=== PATIENT | female | born 1930 | race Caucasian/White ===

== ENCOUNTER 2018-02-18 10:37 | Inpatient (IN) | payer OTHER, MEDICARE ==
[~2018-02-18] VITALS: Ht 158.8 cm; Wt 72.7 kg
[~2018-02-18 10:37] MED LIST: ATOR40TA16 PO; BUPR100T4 PO; CALC600C3 PO; CHOL5000 PO; CO Q100C9 PO; CRANCAP2 PO; DEXI60CA3 PO; ESCI20TA PO; LEVO25TA4 PO; LOSA50TA PO; MIRA50TA PO; PLAV75TA29 PO; POTA10CA PO
[2018-02-18] MEDS ORDERED: LIDOCAINE HCL 1% PF 5 ML SYRINGE OTHER ONE (12:00)
[2018-02-18] MEDS ORDERED: PHENYLEPH/NS 1000 MCG/10 ML SYR IV ONE (12:00)
[2018-02-18] MEDS ORDERED: PROPOFOL 200 MG/20 ML AMP IV ONE (12:00)
[2018-02-18] MEDS ORDERED: METOPROLOL TARTRATE 5 MG/5 ML VIAL IV ONE (12:00)
[2018-02-18] MEDS ORDERED: ROCURONIUM INJ 50 MG/5 ML SYRINGE IV PUSH ONE (12:00)
[2018-02-18] MEDS ORDERED: hydrALAZINE HCL 20 MG/ML VIAL IV ONE (12:00)
[2018-02-18] MEDS ORDERED: POVIDONE IODINE 5% (ANTISEPSIS KIT) 4 APPLICATIONS EACH NARE PRN (12:15)
[2018-02-18] MEDS ORDERED: SODIUM CHLORID 0.9% 500 ML IV PRN (12:15)
[2018-02-18] MEDS ORDERED: LACTATED RINGER'S 1000 ML IV PRN (12:15)
[2018-02-18] MEDS ORDERED: CHLORHEXIDINE GLUCONATE 2 % 1 PACK (2 CLOTHS) TOPICAL PRN (12:15)
[2018-02-18] MEDS ORDERED: METOPROLOL TARTRATE 25 MG TAB PO PRN (12:15)
[2018-02-18] MEDS ORDERED: VANCOMYCIN 1000 MG/NS 250 ML (for <70 kg) IV SCH ×2 (12:30)
[2018-02-18] MEDS ORDERED: ROPIVACAINE PERI-ARTICULAR INJECTION. P-ARTICULR SCH ×5 (12:30)
[2018-02-18] MEDS ORDERED: CHLORHEXIDINE GLUCONATE 4% SOLN 120 ML BTL TOPICAL SCH (12:30)
[2018-02-18] MEDS ORDERED: ceFAZolin 2 GM PREMIX 50 ML IV SCH (12:30)
[2018-02-18] MEDS ORDERED: ACETAMINOPHEN 1000 MG/100 ML 100 ML IV ONE (13:30)
[2018-02-18] MEDS ORDERED: FAT EMULSION 20% INJ 0 ML ONE (13:41)
[2018-02-18] MEDS ORDERED: DEXAMETHASONE SOD PHOS PF 10 MG/ML VIAL ONE (13:42)
[2018-02-18] MEDS ORDERED: BUPIVACAINE HCL PF 0.5% 30 ML VIAL ONE (13:42)
[2018-02-18] MEDS ORDERED: VANCOMYCIN HCL 1000 MG VIAL ONE (13:49)
[2018-02-18 13:50] VITALS: PULSE 80
[2018-02-18] MEDS ORDERED: GENTAMICIN SULFATE 80 MG/2 ML VIAL ONE (14:31)
--- NOTE | 2018-02-18 17:00 | HHI.PR ---
Immediate Post Op Note Procedure Date: Feb 18, 2018 Pre Op Diagnosis: R Knee OA,Genu Valgus Deformity Post Op Diagnosis: Same Surgeon: Chemo Rush MD Wind Turbine Performance Engineer(s): Stephanie Price PA-C Procedure: R TKR Complications: None Specimen(s) removed: None Estimated blood loss: <25cc Anesthesia: General, Regional Block, Local Drains: Hemovac Tourniquet time (min at mmHg) 59 mins @ 300 mm Hg Patient to: PACU Patient Condition: Good Implant/Devices: SEE IMPLANT LOG (if applicable) Date/Time of Procedure: SEE SURGICAL CARE RECORD Chemo Rush MD Feb 18, 2018 17:00
[2018-02-18] MEDS ORDERED: DO NOT ADM ANY ANTICOAGULANT DRUGS PRN (17:11)
[2018-02-18] MEDS ORDERED: MORPHINE SULFATE 8 MG/ML INJ IV PUSH PRN (17:15)
[2018-02-18] MEDS ORDERED: ACETAMINOPHEN/HYDROcodone 325 MG/5 MG TAB PO PRN (17:15)
[2018-02-18] MEDS ORDERED: Post-op Orders (for Pharmacy) XX ONE (17:15)
[2018-02-18] MEDS ORDERED: MIDAZOLAM HCL 2 MG/2 ML VIAL ONE (17:15)
[2018-02-18] MEDS ORDERED: ALUMINUM/MAGNESIUM/SIMETH 30 ML CUP PO PRN (17:15)
[2018-02-18] MEDS ORDERED: HYDR-3516 PO (17:23)
--- NOTE | 2018-02-18 17:39 | MP ---
cc: Chemo Rush MD, Margaret M MD Goldsmith, Alan S MD DATE OF OPERATION: 02/18/2018 PREOPERATIVE DIAGNOSIS: Right knee severe osteoarthritis, genu valgus deformity. POSTOPERATIVE DIAGNOSIS: Right knee severe osteoarthritis, genu valgus deformity. PROCEDURE PERFORMED: Right total knee arthroplasty. SURGEON: Patricia Rush MD SENIOR ELECTRICAL DESIGN ENGINEER: Stephanie Price PA-C ANESTHESIA: General, regional adductor canal block, local block. TOURNIQUET TIME: 59 minutes at 300 mmHg. BLOOD LOSS: Less than 25 mL COMPLICATIONS: None. ACTIVITY: See accompanying records. NOTE: My pizza hut assistant Stephanie Price PA-C, was present for the entire surgical case. She was medically necessary for the entire case, because of the complexity of case and to facilitate the performance of the procedure. The SPOT FACER at the back table was not of the skill set for this case in order to manipulate the instruments, e.g. multiple soft tissue retractors, trial implants, permanent implants, including bone cement. PROCEDURE DETAILS: The patient was brought into the operating room and had satisfactory anesthesia by the Department of Anesthesia. The right lower extremity was prepped and draped in the usual sterile manner. The extremity was exsanguinated by elevation and tourniquet inflated to 300 mmHg. A small anterior incision was made over the knee. Paramedian capsulotomy was performed. The patient was found to have severe osteoarthritis involving all three compartments with a genu valgus deformity. The remaining portion of the medial and lateral meniscus were removed. The anterior cruciate ligament was removed. The posterior cruciate ligament was preserved. Prepatellar fat pad was excised. Using the [employer] total knee arthroplasty system, IM guide was used at the distal femur to accept a 62.5 mm femoral component, 5 degree valgus cut. Extramedullary guide was used for the tibia to accept a 31 mm tibial component. Appropriate balancing was made with flexion and extension. Trial reduction made with a 10 mm insert, found to be stable and satisfactory balance with flexion and extension. Undersurface of the patella removed to accept a 28 mm patellar prosthesis. All trial components were removed and preparation for cementing was made. Two packages of Palacos bone cement by [employer] was used. First, the tibial component was cemented which is a #71 mm tibial component, then the femoral component which was a #62.5 mm femoral component, followed by the patella, 28 mm patella three pronged prosthesis. The bone cement was allowed to harden for 12 minutes. All excess bone cement was removed. A 10 x 71 lipped polyethylene plastic was then assembled onto the tibial tray with appropriate locking mechanism. The knee was irrigated with 4000 mL of sterile saline antibiotic solution. The knee was also injected with 100 mL of local anesthesia provided by the Department of Pharmacy. Tourniquet was deflated, the wound itself was dry. The wound was closed over an 1/8-inch Hemovac drain. The capsule and extensor mechanism was repaired using #2 Ti-Cron suture, the subcutaneous tissue in layers with 0 Vicryl and 2-0 Vicryl, skin was approximated with skin patrice, also 2-0 nylon. Sterile dressings were applied. The patient tolerated the procedure well and arrived in the recovery room in stable and satisfactory condition. MD YOANNA Correa/DANNY , 05:06 PM , 05:37 PM
[2018-02-18] MEDS ORDERED: ONDANSETRON ODT 4 MG TAB PO PRN (17:45)
--- NOTE | 2018-02-18 18:00 | RADRPT ---
EXAM DATE: 02/18/2018 5:57 PM EDT AGE/SEX: 87 years / Female INDICATIONS: Post op right total knee replacement. CLINICAL DATA: This is the patient's initial encounter. Patient reports that signs and symptoms have been present for 1 day and indicates a pain score of Nonresponsive. MEDICAL/SURGICAL HISTORY: None. None. COMPARISON: No prior exams available for comparison. FINDINGS: Total knee arthroplasty is in place. The femoral, tibial, and patellar components appear intact. There are no signs of loosening or fracture. CONCLUSION: Intact total knee arthroplasty for technique. Electronically signed by: Chayo Lockwood MD 02/18/2018 5:58 PM EDT
[2018-02-18 20:00] VITALS: BP 148/69; PULSE 87; RESP 18; TEMP 97.4; O2SAT 98
[2018-02-18] MEDS: buPROPion HCL 100 MG TAB PO SCH (21:56)
[2018-02-18] MEDS: ATORVASTATIN 40 MG TAB PO SCH (21:59)
[2018-02-18] MEDS: LOSARTAN 50 MG TAB PO SCH (22:00)
[2018-02-19] VITALS: BP 118/59; PULSE 93; RESP 16; TEMP 98; O2SAT 94
[2018-02-19] MEDS: LACTATED RINGER'S 1000 ML INJ 1,000 ML IV SCH ×3 (02:34→17:58)
[2018-02-19 04:00] VITALS: BP 97/51; PULSE 94; RESP 18; TEMP 97.4; O2SAT 95
[2018-02-19 05:02] LABS: HEMATOCRIT 29.1 % (35.0-46.0); HEMOGLOBIN 9.9 GM/DL (11.6-15.3)
[2018-02-19 05:11] LABS: INTERNATIONAL NORMALIZED RATIO 1.1 RATIO; PROTHROMBIN TIME - PATIENT 11.5 SEC (9.8-11.6)
[2018-02-19] MEDS: LEVOTHYROXINE SODIUM 25 MCG TAB PO SCH (06:40)
--- NOTE | 2018-02-19 07:01 | PD.ORT.PN ---
Subjective Subjective Remarks POD#1 R TKR No c/o chest pain;no SOB Seen with daughter,answered multiple questions Objective Vitals Vital Signs Date Time Temp Pulse Resp B/P (MAP) Pulse Ox O2 Delivery O2 Flow Rate FiO2 02/19/18 04:00 97.4 94 18 97/51 (66) 95 02/19/18 00:00 98.0 93 16 118/59 (78) 94 02/18/18 20:00 97.4 87 18 148/69 (95) 98 02/18/18 17:45 85 16 129/65 (86) 94 Nasal Cannula 3 02/18/18 17:30 84 16 123/62 (82) 93 Nasal Cannula 4 02/18/18 17:15 82 16 141/73 (95) 95 Nasal Cannula 4 02/18/18 17:09 97.6 89 16 142/72 (95) 93 Nasal Cannula 4 02/18/18 13:50 80 02/18/18 12:33 97.9 83 18 179/91 (120) 95 I/O 02/18/18 02/18/18 02/18/18 02/19/18 02/19/18 02/19/18 07:00 15:00 23:00 07:00 15:00 23:00 Intake Total 1800 ml 480 ml Output Total 105 ml 30 ml Balance 1695 ml 450 ml Intake Oral 0 ml 480 ml Other 1800 ml Output Drainage Total 80 ml 30 ml Estimated Blood Loss 25 ml # Voids 4 # Bowel Movements 0 Result Diagram: 02/19/18 0433 Other Results Laboratory Tests Test 02/19/18 04:33 Prothromb Time International Ratio 1.1 RATIO Prothrombin Time 11.5 SEC (9.8-11.6) Imaging Last 24 hours Impressions Knee X-Ray 02/18/18 1710 Signed Impressions: CONCLUSION: Intact total knee arthroplasty for technique. Objective Remarks N/V intact Dressings dry Assessment & Plan Assessment and Plan Ortho stable PT/Rehab D/C to SNF tomorrow Coumadin x 2 weeks then switch back to Plavix daily,TEDS,Sequentials for DVT/PE prophylaxis Chemo Rush MD Feb 19, 2018 07:01
[2018-02-19 08:00] VITALS: BP 90/54; PULSE 95; RESP 18; TEMP 97.9; O2SAT 93
[2018-02-19] MEDS: POTASSIUM CHLORIDE 10 MEQ CAP PO SCH (08:35)
[2018-02-19] MEDS: TOLTERODINE TARTRATE 4 MG CAP LA PO SCH (08:35)
[2018-02-19] MEDS: ESCITALOPRAM OXALATE 20 MG TAB PO SCH (08:36)
[2018-02-19] MEDS: PANTOPRAZOLE SOD 40 MG DELAYED RELEASE TAB PO SCH (08:45)
[2018-02-19] MEDS: ACETAMINOPHEN/HYDROcodone 325 MG/5 MG TAB PO PRN ×3 (08:58→20:33)
[2018-02-19] MEDS ORDERED: NON-FORMULARY DRUG (Mirabegron (Myrbetriq) 50 MG) PO SCH (09:00)
[2018-02-19] MEDS ORDERED: TOLTERODINE TARTRATE 4 MG CAP LA PO SCH (09:00)
[2018-02-19] MEDS ORDERED: DEXLANSOPRAZOLE PO SCH (09:00)
[2018-02-19 12:00] VITALS: BP 136/62; PULSE 88; RESP 19; TEMP 98.1; O2SAT 96
--- NOTE | 2018-02-19 15:14 | PD.CONS ---
HPI Service [facility] Consult Requested By Orthopedic surgeon, Dr. Camara Reason for Consult Assist with medical management Primary Care Physician Megan Kiran MD Diagnoses: History of Present Illness Patient is an 87-year-old female with past medical history of asthma, GERD, HTN , HLD, hypothyroidism, TIA, CVA with left-sided weakness who came into the hospital for elective surgery secondary to right knee severe osteoarthritis. Patient underwent right total knee arthroplasty by Dr. Rush. Consulted for assistance with medical management. Patient seen and examined today family at the bedside. Reports she is doing well. States she has pain on her left lower extremity and waiting for pain medication to take effect. States she participated in physical therapy and also educational class today. Otherwise, denies SOB/ dyspnea. Denies chest pain, palpitations, headaches, dizziness. Denies fevers, chills, n/v/d. Denies dysuria. Review of Systems Except as stated in HPI: all other systems reviewed are Neg Past Family Social History Allergies: Coded Allergies: umu (Verified Allergy, Severe, Swelling, 02/18/18) FACE, TONGUE SWELL papaya (Verified Allergy, Severe, Swelling, 02/18/18) FACE AND TONGUE SWELL pineapple (Verified Allergy, Severe, Swelling, 02/18/18) FACE AND TONGUE SWELL teriparatide (Verified Allergy, Unknown, FELT LIKE I WAS HAVING A STROKE; INABILITY TO HOLD HEAD UP, 02/15/18) Uncoded Allergies: MUSHROOMS (Allergy, Severe, Swelling, 02/18/18) FACE AND TONGUE SWELL Past Medical History Asthma GERD HTN HLD Hypothyroidism TIA CVA with left-sided weakness Past Surgical History Bilateral cataract surgery Reported Medications Reported Meds & Active Scripts Active Hydrocodone-Acetamin 5-325 mg (Hydrocodone/Acetaminophen) 5 Mg-325 Mg Tablet 1- 2 Tab PO Q6HR PRN Reported Cranberry Urinary Comfort (Vitamins C & E) 1 Cap 1 Cap PO DAILY Levothyroxine (Levothyroxine Sodium) 25 Mcg Tab 25 Mcg PO DAILY Losartan (Losartan Potassium) 50 Mg Tab 50 Mg PO HS Myrbetriq (Mirabegron) 50 Mg Tab 50 Mg PO DAILY Dexilant (Dexlansoprazole) 60 Mg Cap.bp 1 Cap PO DAILY Vitamin D3 (Cholecalciferol) 5,000 Unit Cap 5,000 Units PO DAILY Calcium 600 + Vit D 400 Softgl (Calcium Carbonate/Vitamin D3) 600 Mg-400 Capsule 1 Cap PO BID Co Q 10 (Coenzyme Q10 (Ubidecarenone)) 100 Mg-5 Unit Cap 200 Mg PO DAILY Potassium Chloride ER (Potassium Chloride) 10 Meq Cap 10 Meq PO DAILY Atorvastatin (Atorvastatin Calcium) 40 Mg Tab 40 Mg PO HS Bupropion HCl 100 Mg Tab 150 Mg PO HS Escitalopram (Escitalopram Oxalate) 20 Mg Tab 10 Mg PO DAILY Plavix (Clopidogrel Bisulfate) 75 Mg Tab 75 Mg PO DAILY Active Ordered Medications Current Medications Medications (Trade) Dose Ordered Sig/Kirk Route Start Time Stop Time Status Last Admin Lactated Ringer's 1,000 ml @ 30 mls/hr Q24H PRN IV 02/18/18 12:15 02/21/18 12:14 Sodium Chloride 500 ml @ 30 mls/hr [id number] PRN IV 02/18/18 12:15 02/21/18 12:14 (Lopressor) 25 mg [employer] PRN PO 02/18/18 12:15 02/21/18 12:14 (Betadine 5% Antisepsis Kit) 1 applic [employer] PRN EACH NARE 02/18/18 12:15 02/21/18 12:14 (Chlorhexidine 2% Cloth) 3 pack [employer] PRN TOPICAL 02/18/18 12:15 02/21/18 12:14 (Hibiclens 4% Top Soln) 1 applic ONCE TOPICAL 02/18/18 12:30 02/21/18 12:29 Cefazolin Sodium/ Dextrose 50 ml @ 100 mls/hr [employer] IV 02/18/18 12:30 02/21/18 12:29 02/18/18 15:10 Vancomycin HCl 1000 mg/Sodium Chloride 250 ml @ 250 mls/hr [employer] IV 02/18/18 12:30 02/21/18 12:29 02/18/18 15:05 (Lipitor) 40 mg HS PO 02/18/18 21:00 02/18/18 21:59 (Wellbutrin) 150 mg HS PO 02/18/18 21:00 02/18/18 21:56 (Lexapro) 10 mg DAILY PO 02/19/18 09:00 02/19/18 08:36 (Synthroid) 25 mcg DAILY@0600 PO 02/19/18 06:00 02/19/18 06:40 (Cozaar) 50 mg HS PO 02/18/18 21:00 02/18/18 22:00 (KCl) 10 meq DAILY PO 02/19/18 09:00 02/19/18 08:35 Lactated Ringer's 1,000 ml @ 80 mls/hr [id number] IV 02/18/18 18:00 02/19/18 02:34 (Coumadin) Follow Sliding Scale... DAILY@1600 PO 02/19/18 16:00 (Morphine Inj) 5 mg Q3H PRN IV PUSH 02/18/18 17:15 (Ramona 5-325 Mg) 1 tab Q4H PRN PO 02/18/18 17:15 02/19/18 06:29 (Ramona 5-325 Mg) 2 tab Q4H PRN PO 02/18/18 17:15 02/19/18 14:26 (Zofran Odt) 4 mg Q6H PRN PO 02/18/18 17:45 (Mag-Al Plus Susp Liq) 30 ml Q6H PRN PO 02/18/18 17:15 (Protonix) 40 mg DAILY PO 02/19/18 09:00 (Detrol La) 4 mg DAILY PO 02/19/18 09:00 02/19/18 08:35 ([facility] [place] Nursing Information) ALL NURSING DEPARTME... UNSCH PRN .XX 02/18/18 17:11 02/19/18 17:10 Family History Mother and father have high blood pressure, some sort of heart disease but does not know specifics Social History Occasional alcohol use Denies tobacco use Denies illicit drug use Physical Exam Vital Signs Vital Signs Date Time Temp Pulse Resp B/P (MAP) Pulse Ox O2 Delivery O2 Flow Rate FiO2 02/19/18 12:00 98.1 88 19 136/62 (86) 96 02/19/18 10:06 16 02/19/18 08:26 18 02/19/18 08:00 97.9 95 18 90/54 (66) 93 02/19/18 04:00 97.4 94 18 97/51 (66) 95 02/19/18 00:00 98.0 93 16 118/59 (78) 94 02/18/18 20:00 97.4 87 18 148/69 (95) 98 02/18/18 17:45 85 16 129/65 (86) 94 Nasal Cannula 3 02/18/18 17:30 84 16 123/62 (82) 93 Nasal Cannula 4 02/18/18 17:15 82 16 141/73 (95) 95 Nasal Cannula 4 02/18/18 17:09 97.6 89 16 142/72 (95) 93 Nasal Cannula 4 Physical Exam GENERAL: This is a well-nourished, well-developed patient, in no apparent distress. SKIN: Warm and dry. Pale. HEENT: Normocephalic. Pupils equal round and reactive. Nose without bleeding. Airway patent. NECK: Trachea midline. No JVD. Supple. CARDIOVASCULAR: Regular rate and rhythm without murmurs, gallops, or rubs. RESPIRATORY: Clear to auscultation. Breath sounds equal bilaterally. No wheezes , rales, or rhonchi. GASTROINTESTINAL: Abdomen soft, non-tender, nondistended. Bowel Sounds normoactive x4. MUSCULOSKELETAL: Extremities without clubbing, cyanosis. Right lower extremity trace edema. NEUROLOGICAL: Awake and alert. Oriented to time, place, person. No focal neuro deficit. Moves all extremities. Normal speech. Laboratory Laboratory Tests Test 02/19/18 04:33 Hemoglobin 9.9 Hematocrit 29.1 Prothrombin Time 11.5 Prothromb Time International Ratio 1.1 Result Diagram: 02/19/18 0433 Imaging Last Impressions Knee X-Ray 02/18/18 1710 Signed Impressions: CONCLUSION: Intact total knee arthroplasty for technique. Assessment and Plan Assessment and Plan Patient is an 87-year-old female with past medical history of asthma, GERD, HTN , HLD, hypothyroidism, TIA, CVA with left-sided weakness who came into the hospital for elective surgery secondary to right knee severe osteoarthritis. Patient underwent right total knee arthroplasty by Dr. Rush. Consulted for assistance with medical management. Status post right total knee arthroplasty by Dr. Rush -Orthopedic management, postop IV antibiotics -Pain management with bowel regimen -Physical therapy eval and treat HTN HLD - Restart home medication atorvastatin 40 mg, losartan 50 mg GERD -Pantoprazole daily Hypothyroidism -Restart home medication levothyroxine 25 mcg DVT Prop Lovenox Code Status Full Code Discussed Condition With Patient, Family, Nursing Sadie TimmonsP Feb 19, 2018 15:14
[2018-02-19 16:00] VITALS: BP 114/56; PULSE 85; RESP 18; TEMP 98.5; O2SAT 94
[2018-02-19] MEDS: WARFARIN SOD 5 MG TAB PO SCH (16:56)
[2018-02-19] MEDS: LOSARTAN 50 MG TAB PO SCH (20:31)
[2018-02-19] MEDS: ATORVASTATIN 40 MG TAB PO SCH (20:31)
[2018-02-19] MEDS: buPROPion HCL 100 MG TAB PO SCH (20:32)
[2018-02-19 21:15] VITALS: BP 123/58; PULSE 86; RESP 17; TEMP 98.1; O2SAT 92
[2018-02-20 00:15] VITALS: BP 111/55; PULSE 90; RESP 17; TEMP 97.9; O2SAT 92
[2018-02-20 04:00] VITALS: BP 99/52; PULSE 81; RESP 16; TEMP 97.6; O2SAT 92
[2018-02-20] MEDS: LEVOTHYROXINE SODIUM 25 MCG TAB PO SCH (05:46)
[2018-02-20 06:02] LABS: INTERNATIONAL NORMALIZED RATIO 1.3 RATIO; PROTHROMBIN TIME - PATIENT 13.5 SEC (9.8-11.6)
[2018-02-20] MEDS: LACTATED RINGER'S 1000 ML INJ 1,000 ML IV SCH (07:30)
[2018-02-20] MEDS ORDERED: WALKER WHEELS/F1 MIS (07:38)
[2018-02-20] MEDS ORDERED: COUM4TAB PO (07:39)
--- NOTE | 2018-02-20 07:40 | PD.ORT.PN ---
Subjective Subjective Remarks pt doing well, ready to be discharged to SNF today Objective Vitals Vital Signs Date Time Temp Pulse Resp B/P (MAP) Pulse Ox O2 Delivery O2 Flow Rate FiO2 02/20/18 04:00 97.6 81 16 99/52 (68) 92 02/20/18 00:15 97.9 90 17 111/55 (73) 92 02/19/18 21:15 98.1 86 17 123/58 (79) 92 02/19/18 16:30 15 02/19/18 16:00 98.5 85 18 114/56 (75) 94 02/19/18 12:00 98.1 88 19 136/62 (86) 96 02/19/18 08:26 18 02/19/18 08:00 97.9 95 18 90/54 (66) 93 I/O 02/19/18 02/19/18 02/19/18 02/20/18 02/20/18 02/20/18 07:00 15:00 23:00 07:00 15:00 23:00 Intake Total 480 ml 1000 ml 960 ml 480 ml Output Total 30 ml Balance 450 ml 1000 ml 960 ml 480 ml Intake Oral 480 ml 960 ml 480 ml IV Total 1000 ml Output Drainage Total 30 ml # Voids 4 3 1 # Bowel Movements 0 0 Result Diagram: 02/19/18 0433 Other Results Laboratory Tests Test 02/20/18 03:21 Prothromb Time International Ratio 1.3 RATIO Prothrombin Time 13.5 SEC (9.8-11.6) Imaging Last 24 hours Impressions Knee X-Ray 02/18/18 1710 Signed Impressions: CONCLUSION: Intact total knee arthroplasty for technique. Objective Remarks right knee dressing dry and intact +NVI no calf tenderness Assessment & Plan Assessment and Plan POD # 1 s/p R TKA Ortho stable PT/Rehab D/C to SNF today, orthopedically stable Coumadin x 2 weeks then switch back to Plavix daily,TEDS,Sequentials for DVT/PE prophylaxis Stephanie Price Feb 20, 2018 07:40
[2018-02-20 08:42] VITALS: BP 101/68; PULSE 95; RESP 17; TEMP 98.4; O2SAT 98
[2018-02-20] MEDS: ESCITALOPRAM OXALATE 20 MG TAB PO SCH (09:21)
[2018-02-20] MEDS: POTASSIUM CHLORIDE 10 MEQ CAP PO SCH (09:22)
[2018-02-20] MEDS: PANTOPRAZOLE SOD 40 MG DELAYED RELEASE TAB PO SCH (09:22)
[2018-02-20] MEDS: TOLTERODINE TARTRATE 4 MG CAP LA PO SCH (09:22)
--- NOTE | 2018-02-20 09:50 | HHI.PR ---
Subjective Remarks Follow-up visit status post right total knee replacement. Patient seen and examined today. Daughter at bedside. Reports she is doing well. Able to ambulate with physical therapy. Pain is manageable. Denies SOB/ dyspnea. Denies chest pain, palpitations, headaches, dizziness. Denies fevers, chills, n/ v/d. Denies dysuria. Objective Vitals Vital Signs Date Time Temp Pulse Resp B/P (MAP) Pulse Ox O2 Delivery O2 Flow Rate FiO2 02/20/18 08:42 98.4 95 17 101/68 (79) 98 02/20/18 04:00 97.6 81 16 99/52 (68) 92 02/20/18 00:15 97.9 90 17 111/55 (73) 92 02/19/18 21:15 98.1 86 17 123/58 (79) 92 02/19/18 16:30 15 02/19/18 16:00 98.5 85 18 114/56 (75) 94 02/19/18 12:00 98.1 88 19 136/62 (86) 96 I/O 02/19/18 02/19/18 02/19/18 02/20/18 02/20/18 02/20/18 07:00 15:00 23:00 07:00 15:00 23:00 Intake Total 480 ml 1000 ml 960 ml 480 ml Output Total 30 ml Balance 450 ml 1000 ml 960 ml 480 ml Intake Oral 480 ml 960 ml 480 ml IV Total 1000 ml Output Drainage Total 30 ml # Voids 4 3 1 # Bowel Movements 0 0 Result Diagram: 02/19/18 0433 Imaging Last Impressions Knee X-Ray 02/18/18 1710 Signed Impressions: CONCLUSION: Intact total knee arthroplasty for technique. Objective Remarks GENERAL: This is a well-nourished, well-developed patient, in no apparent distress. SKIN: Warm and dry. Pale. HEENT: Normocephalic. Pupils equal round and reactive. Nose without bleeding. Airway patent. NECK: Trachea midline. No JVD. Supple. CARDIOVASCULAR: Regular rate and rhythm without murmurs, gallops, or rubs. RESPIRATORY: Clear to auscultation. Breath sounds equal bilaterally. No wheezes , rales, or rhonchi. GASTROINTESTINAL: Abdomen soft, non-tender, nondistended. Bowel Sounds normoactive x4. MUSCULOSKELETAL: Extremities without clubbing, cyanosis. Right lower extremity trace edema. NEUROLOGICAL: Awake and alert. Oriented to time, place, person. No focal neuro deficit. Moves all extremities. Normal speech. Procedures Status post right total knee replacement A/P Assessment and Plan Patient is an 87-year-old female with past medical history of asthma, GERD, HTN , HLD, hypothyroidism, TIA, CVA with left-sided weakness who came into the hospital for elective surgery secondary to right knee severe osteoarthritis. Patient underwent right total knee arthroplasty by Dr. Rush. Consulted for assistance with medical management. Status post right total knee arthroplasty by Dr. Rush -Orthopedic management, postop IV antibiotics -Pain management with bowel regimen -Physical therapy eval and treat HTN HLD -Restart home medication atorvastatin 40 mg, losartan 50 mg GERD -Pantoprazole daily Hypothyroidism -Restart home medication levothyroxine 25 mcg DVT Prop Lovenox, will be discharged on Coumadin Medically cleared for discharge Discharge Planning Plan to discharge to senior living facility today for hours nursing and rehab per Sadie Price Feb 20, 2018 09:50
[2018-02-20] MEDS: ACETAMINOPHEN/HYDROcodone 325 MG/5 MG TAB PO PRN ×2 (11:45→15:59)
[2018-02-20 12:00] VITALS: BP 118/58; PULSE 91; RESP 18; TEMP 98.2; O2SAT 93
[2018-02-20] MEDS: WARFARIN SOD 5 MG TAB PO SCH (16:02)
== END 2018-02-20 16:01 | DRG 470 ==
LOC: HSDI 11:24 → EDBD 14:30 → N06B 18:07
PROVIDERS: ADMIT Orthopaedic Surgery Orthopaedic Surgery of the Spine; ATTEND Orthopaedic Surgery Orthopaedic Surgery of the Spine
PROC: 0SRC0J9 Replacement of Right Knee Joint with Synthetic Substitute, Cemented, Open Approach (ICD-10-PCS; principal; 2018-02-18 14:56)
DX: M17.11 Unilateral primary osteoarthritis, right knee (principal); I69.354 Hemiplegia and hemiparesis following cerebral infarction affecting left non-dominant side; I10 Essential (primary) hypertension; M21.069 Valgus deformity, not elsewhere classified, unspecified knee; J45.909 Unspecified asthma, uncomplicated; E03.9 Hypothyroidism, unspecified; K21.9 Gastro-esophageal reflux disease without esophagitis; M81.0 Age-related osteoporosis without current pathological fracture; E78.5 Hyperlipidemia, unspecified
CPT/HCPCS: 73560; 85014; 85018; 85610; 86850; 86900; 86901; 86920; 94150; C1776; J0131; J0360; J0690; J0735; J1100; J1580; J1885; J2250; J2370; J2795; J3010; J3370; J7050; J7120; L1830